=== PATIENT | male | born 1985 | race Caucasian/White ===

== ENCOUNTER 2018-08-03 15:31 | Emergency (ER) | payer OTHER ==
[~2018-08-03] VITALS: Ht 185.4 cm; Wt 86.2 kg
[~2018-08-03 15:31] MED LIST: CIPROFLOXACIN500 M1 PO; FLAGYL500 MG PO; FLEXERIL PO; HYDROCODON-ACE1 EAC7 PO; IBUPROFEN 800800 M1 PO; KEFLEX500 MG PO; MOTOFEN TABLET1 EACH; NOHOMEMEDICATIONS; NORCO 5-325 TA1 EACH PO; PENICILLIN VK500 MG PO; PERCOCET 5-3251 EACH PO; PHENERGAN 25 MG25 M1 PO; PREDNISONE 10 M10 MG PO; ULTRAM 50MG TAB50 MG PO
[2018-08-03] MEDS ORDERED: HYDROCODONE-AP1 EAC6 PO (16:33)
[2018-08-03 16:42] VITALS: BP 140/93
== END 2018-08-03 16:43 | disposition home or self-care (01) ==
LOC: M.ERS 15:31
DX: S60.042A Contusion of left ring finger without damage to nail, initial encounter (principal); M25.442 Effusion, left hand; X58.XXXA Exposure to other specified factors, initial encounter; Y93.89 Activity, other specified; Y92.89 Other specified places as the place of occurrence of the external cause; Y99.8 Other external cause status

== ENCOUNTER 2019-09-19 02:10 | Emergency (ER) | payer OTHER ==
[~2019-09-19] VITALS: Ht 185.4 cm; Wt 86.2 kg
[~2019-09-19 02:10] MED LIST changes: +HYDROCODONE-AP1 EAC6 PO
[2019-09-19] MEDS ORDERED: HYDROCODON-ACE1 EAC7 PO (02:53)
[2019-09-19 03:27] VITALS: BP 140/77
== END 2019-09-19 03:28 | disposition home or self-care (01) ==
LOC: M.ERS 02:10
DX: S93.491A Sprain of other ligament of right ankle, initial encounter (principal); F17.210 Nicotine dependence, cigarettes, uncomplicated; Z88.5 Allergy status to narcotic agent; W18.39XA Other fall on same level, initial encounter; Y93.89 Activity, other specified; Y92.89 Other specified places as the place of occurrence of the external cause; Y99.8 Other external cause status

== ENCOUNTER 2019-11-30 14:13 | Emergency (ER) | payer OTHER ==
[~2019-11-30] VITALS: Ht 185.4 cm; Wt 83.9 kg
[2019-11-30] MEDS ORDERED: KEFLEX500 M1 PO (14:36)
[2019-11-30 14:53] VITALS: BP 143/84
== END 2019-11-30 14:53 | disposition home or self-care (01) ==
LOC: M.ERS 14:13
DX: S61.213A Laceration without foreign body of left middle finger without damage to nail, initial encounter (principal); S61.215A Laceration without foreign body of left ring finger without damage to nail, initial encounter; F17.210 Nicotine dependence, cigarettes, uncomplicated; Z88.5 Allergy status to narcotic agent; W26.8XXA Contact with other sharp object(s), not elsewhere classified, initial encounter; Y93.89 Activity, other specified; Y92.89 Other specified places as the place of occurrence of the external cause; Y99.8 Other external cause status

== ENCOUNTER 2020-12-04 17:07 | Emergency (ER) | payer OTHER ==
[~2020-12-04] VITALS: Ht 185.4 cm; Wt 90.7 kg
[~2020-12-04 17:07] MED LIST changes: +KEFLEX500 M1 PO
[2020-12-04 17:55] VITALS: BP 150/112
== END 2020-12-04 17:57 | disposition left against medical advice (07) ==
LOC: M.ERS 17:07
DX: Z53.21 Procedure and treatment not carried out due to patient leaving prior to being seen by health care provider (principal)

== ENCOUNTER 2020-12-26 23:17 | Emergency (ER) | payer OTHER ==
[~2020-12-26] VITALS: Ht 185.4 cm; Wt 86.2 kg
[2020-12-27] MEDS ORDERED: GENTAK5 ML TOP (00:50)
[2020-12-27] MEDS ORDERED: CARAFATE 1 GM TA1 GM PO (01:06)
[2020-12-27] MEDS ORDERED: OMEPRAZOLE 20 M20 M1 PO (01:06)
[2020-12-27 01:07] VITALS: BP 140/86
== END 2020-12-27 01:06 | disposition home or self-care (01) ==
LOC: M.ERS 23:17
DX: S05.02XA Injury of conjunctiva and corneal abrasion without foreign body, left eye, initial encounter (principal); F17.210 Nicotine dependence, cigarettes, uncomplicated; Z88.5 Allergy status to narcotic agent; X58.XXXA Exposure to other specified factors, initial encounter; Y93.89 Activity, other specified; Y92.89 Other specified places as the place of occurrence of the external cause; Y99.8 Other external cause status

== ENCOUNTER 2020-12-29 14:59 | Emergency (ER) | payer OTHER ==
[~2020-12-29 14:59] MED LIST changes: +CARAFATE 1 GM TA1 GM PO; +GENTAK5 ML TOP; +OMEPRAZOLE 20 M20 M1 PO
== END 2020-12-29 15:23 | disposition home or self-care (01) ==
LOC: M.ERS 14:59
DX: H57.12 Ocular pain, left eye (principal); H57.89 Other specified disorders of eye and adnexa; Z53.21 Procedure and treatment not carried out due to patient leaving prior to being seen by health care provider

== ENCOUNTER 2020-12-31 20:02 | Emergency (ER) | payer OTHER | END 2020-12-31 20:28 | disposition left against medical advice (07) | LOC: M.ERS 20:02 | DX: H57.12 Ocular pain, left eye (principal); Z53.21 Procedure and treatment not carried out due to patient leaving prior to being seen by health care provider ==

== ENCOUNTER 2021-01-10 13:16 | Emergency (ER) | payer OTHER ==
[~2021-01-10] VITALS: Ht 185.4 cm; Wt 86.2 kg
[2021-01-10 13:55] LABS: ABSOLUTE BASOPHILS 0.1 thou/uL (0.0-0.2); ABSOLUTE EOSINOPHILS 0.1 thou/uL (0.0-0.7); ABSOLUTE LYMPHOCYTES 1.6 thou/uL (0.8-5.3); ABSOLUTE MONOCYTES 0.4 thou/uL (0.0-1.2); ABSOLUTE NEUTROPHILS 8.5 thou/uL (1.6-8.1); BASOPHILS 1.2 %; EOSINOPHILS 0.6 %; HEMATOCRIT 43.4 % (42.0-52.0); HEMOGLOBIN 15.2 gm/dL (14.0-18.0); LYMPHOCYTES 15.1 %; MCH 30.4 pg (26.0-34.0); MCV 86.8 fL (80.0-100.0); MONOCYTES 3.6 %; MPV 7.1 fl. (7.2-11.1); NUCLEATED RBCS 0 /100WBC; PLATELET COUNT* 258 thou/uL (150-400); POLYS 79.5 %; RBC 5.01 mil/uL (4.50-6.00); RDW-CV 13.2 % (10.5-14.5); WBC 10.7 thou/uL (4.0-11.0)
[2021-01-10 14:04] LABS: CALCIUM 8.8 mg/dL (8.5-10.1); CREATININE 0.9 mg/dL (0.6-1.3); POTASSIUM 3.3 mmol/L (3.5-5.1)
[2021-01-10 14:08] LABS: ALBUMIN 4.1 g/dL (3.4-5.0); TOTAL BILIRUBIN 0.5 mg/dL (<0.1-1.0); TOTAL PROTEIN 7.3 g/dL (6.4-8.2)
[2021-01-10 14:12] LABS: URINE BLOOD NEGATIVE (Negative); URINE CLARITY CLEAR; URINE COLOR YELLOW; URINE GLUCOSE-RANDOM NEGATIVE (Negative); URINE KETONES NEGATIVE (Negative); URINE LEUKOCYTES-REFLEX NEGATIVE (Negative); URINE NITRITE-REFLEX NEGATIVE (Negative); URINE PROTEIN NEGATIVE (Negative); URINE SPECIFIC GRAVITY >= 1.030 (1.005-1.030); URINE UROBILINOGEN 0.2 E.U./dl (0.2-1.0)
[2021-01-10 14:14] LABS: ICTOTEST (BILI CONFIRMATORY) Negative (Negative); URINE BILIRUBIN 1+ (Negative)
[2021-01-10 14:21] LABS: AMP/METHAMP Negative (Negative); BARBITURATES Negative (Negative); BENZODIAZEPINES Negative (Negative); COCAINE POSITIVE (Negative); METHADONE Negative (Negative); OPIATES Negative (Negative); PCP Negative (Negative); THC POSITIVE (Negative)
[2021-01-10 14:34] VITALS: BP 110/75
--- NOTE | 2021-01-11 11:30 | EKG ---
[place] [address] ELECTROCARDIOGRAM REPORT Name: MASON MITTAL Room: [facility]#: [id number] Admission: 01/10/21 Attend Phys: Discharge: 01/10/21 Date of : 83 Date of Service: 01/10/21 1350 Report #: [id number] THIS REPORT FOR: //name// [facility] ED Test Date: 2021-01-10 Test Time: 13:50:52 Pat Name: MASON BURTON Department: Room: Gender: [employer]: : 1985 Requested By: Titus Suazo Order Number: [id number] MD: Leonel Mathias Measurements Intervals [place] Rate: 106 P: 59 VA: 157 QRS: 51 QRSD: 101 T: -15 QT: 354 QTc: 471 Interpretive Statements Sinus tachycardia Borderline repol abnrm, inferolateral leads Compared to ECG 11/06/2013 10:17:45 Sinus rhythm no longer present Electronically Signed On 01-11-2021 11:30:24 CDT by Leonel Mathias [email or web address] <ELECTRONICALLY SIGNED> By: Leonel Mathias MD, [facility] 01/11/21 1130 1350 1350 Leonel Mathias MD, [facility] /EPI
== END 2021-01-10 14:35 | disposition left against medical advice (07) ==
LOC: M.ERS 13:16
PROVIDERS: Emergency Medicine Emergency Medical Services
DX: R10.84 Generalized abdominal pain (principal); R11.2 Nausea with vomiting, unspecified; F17.210 Nicotine dependence, cigarettes, uncomplicated; Z88.5 Allergy status to narcotic agent; Z79.899 Other long term (current) drug therapy

== ENCOUNTER 2021-01-21 21:35 | Emergency (ER) | payer OTHER ==
[~2021-01-21] VITALS: Ht 185.4 cm; Wt 88.5 kg
[2021-01-21] MEDS ORDERED: GENTAK3.5 G1 TOP (21:51)
[2021-01-21 22:04] VITALS: BP 138/86
== END 2021-01-21 22:05 | disposition home or self-care (01) ==
LOC: M.ERS 21:35
DX: H57.11 Ocular pain, right eye (principal); H57.89 Other specified disorders of eye and adnexa; Z88.5 Allergy status to narcotic agent; Z98.890 Other specified postprocedural states

== ENCOUNTER 2021-01-22 12:23 | Emergency (ER) | payer OTHER ==
[~2021-01-22 12:23] MED LIST changes: +GENTAK3.5 G1 TOP
[2021-01-22 12:38] VITALS: BP 00/00
[2021-01-23] MEDS ORDERED: MUPIROCIN15 GM TOP (02:28)
[2021-01-23] MEDS ORDERED: BACTRIM DS TAB1 EAC1 PO (02:28)
== END 2021-01-22 12:39 | disposition left against medical advice (07) ==
LOC: M.ERS 12:23
DX: Z53.21 Procedure and treatment not carried out due to patient leaving prior to being seen by health care provider (principal)

== ENCOUNTER 2021-01-23 02:11 | Emergency (ER) | payer OTHER ==
[~2021-01-23] VITALS: Ht 185.4 cm; Wt 86.2 kg
[2021-01-23 02:16] VITALS: BP 165/111
[2021-01-23] MEDS ORDERED: MUPIROCIN15 GM TOP (02:28)
[2021-01-23] MEDS ORDERED: BACTRIM DS TAB1 EAC1 PO (02:28)
== END 2021-01-23 02:38 | disposition home or self-care (01) ==
LOC: M.ERS 02:11
DX: R23.4 Changes in skin texture (principal); B95.7 Other staphylococcus as the cause of diseases classified elsewhere; F17.210 Nicotine dependence, cigarettes, uncomplicated; Z88.5 Allergy status to narcotic agent

== ENCOUNTER 2021-01-26 22:18 | Emergency (ER) | payer OTHER ==
[~2021-01-26] VITALS: Ht 185.4 cm; Wt 86.2 kg
[~2021-01-26 22:18] MED LIST changes: +BACTRIM DS TAB1 EAC1 PO; +MUPIROCIN15 GM TOP
[2021-01-26 22:26] VITALS: BP 139/87
== END 2021-01-26 22:50 | disposition left against medical advice (07) ==
LOC: M.ERS 22:18
DX: Z53.21 Procedure and treatment not carried out due to patient leaving prior to being seen by health care provider (principal)

== ENCOUNTER 2021-02-07 07:05 | Emergency (ER) | payer OTHER | END 2021-02-07 08:06 | disposition left against medical advice (07) | LOC: M.ERS 07:05 | DX: Z53.21 Procedure and treatment not carried out due to patient leaving prior to being seen by health care provider (principal) ==

== ENCOUNTER 2021-02-20 15:10 | Emergency (ER) | payer OTHER | END 2021-02-20 15:33 | disposition left against medical advice (07) | LOC: M.ERS 15:10 | DX: Z53.21 Procedure and treatment not carried out due to patient leaving prior to being seen by health care provider (principal) ==

== ENCOUNTER 2021-02-25 11:58 | Emergency (ER) | payer OTHER ==
[2021-02-25 12:27] VITALS: BP 00/00
== END 2021-02-25 12:28 | disposition left against medical advice (07) ==
LOC: M.ERS 11:58
DX: Z53.21 Procedure and treatment not carried out due to patient leaving prior to being seen by health care provider (principal)

== ENCOUNTER 2021-03-17 14:16 | Emergency (ER) | payer OTHER ==
[~2021-03-17] VITALS: Ht 185.4 cm; Wt 85.7 kg
[2021-03-17 14:32] VITALS: BP 116/79
== END 2021-03-17 14:44 | disposition left against medical advice (07) ==
LOC: M.ERS 14:16
DX: Z53.21 Procedure and treatment not carried out due to patient leaving prior to being seen by health care provider (principal)